=== PATIENT | male | born 1940 | race Caucasian/White ===

== ENCOUNTER 2016-05-11 11:00 | Emergency (ER) | payer MEDICARE, BC ==
[2016-05-11] MEDS ORDERED: TDaP 0.5 ML VIAL IM.VACC ONE (12:40)
[2016-05-11] MEDS ORDERED: NEB-ALBUTEROL 2.5 MG/3 ML INH ONE ×2 (15:23)
[2016-05-11] MEDS ORDERED: DUONEB INH ONE (15:23)
[2016-05-11] MEDS ORDERED: METHYLPRED SOD SUCC 125 MG/2 ML VIAL ONE (16:55)
== END 2016-05-11 17:31 | disposition home or self-care (01) ==
LOC: ER 11:00
DX: J44.0 Chronic obstructive pulmonary disease with (acute) lower respiratory infection (principal); J20.9 Acute bronchitis, unspecified; Z87.891 Personal history of nicotine dependence
CPT/HCPCS: 36415; 36600; 71020; 80053; 82803; 83880; 85025; 87804; 94640; 96372; 99284; J2930